=== PATIENT | male | born 1995 | race Caucasian/White ===

== ENCOUNTER 2017-04-19 13:13 | Emergency (ER) | payer OTHER ==
[~2017-04-19] VITALS: Ht 180.3 cm; Wt 142.9 kg
[2017-04-19 13:17] VITALS: Ht 180.3 cm; Wt 142.9 kg
[2017-04-19] MEDS ORDERED: LORAZEPAM 1 MG TAB PO STA (13:31)
--- NOTE | 2017-04-19 13:53 | DIAGNOSTIC IMAGING REPORT ---
CHEST ONE VIEW PORTABLE CLINICAL HISTORY: chest pain dyspnea COMPARISON STUDY: No previous studies for comparison. FINDINGS: The bones soft tissues and hemidiaphragms are normal. The cardiomediastinal silhouette is normal. The lungs are clear. The pulmonary vasculature is normal. IMPRESSION: Negative chest. The above report was generated using voice recognition software. It may contain grammatical, syntax or spelling errors. Electronically signed by: Fer Barron M.D. 04/19/2017 1:51 PM Dictated Date/Time: 04/19/2017 1:51 PM
[2017-04-19 14:02] LABS: BASO % 0.2 %; BASO ABS # 0.02 K/uL (0-0.2); EOS % 1.5 %; EOS ABS # 0.13 K/uL (0-0.5); HEMATOCRIT 45.7 % (42-52); HEMOGLOBIN 16.1 g/dL (14.0-18.0); IG# 0.02 K/uL (0.00-0.02); LYMPH % 30.9 %; MEAN CELL VOLUME 86.2 fL (80-100); MEAN CORPUSCULAR HEMOGLOBIN 30.4 pg (25-34); MEAN CORPUSCULAR HGB CONC 35.2 g/dl (32-36); MEAN PLATELET VOLUME 11.2 fL (7.4-10.4); MONO % 6.3 %; MONO ABS # 0.53 K/uL (0.11-0.59); NEUT % 60.9 %; NEUT ABS # 5.12 K/uL (1.4-6.5); PLATELET COUNT 274 K/uL (130-400); RED CELL DISTRIBUTION WIDTH CV 12.5 % (11.5-14.5); RED CELL DISTRIBUTION WIDTH SD 39.5 fL (36.4-46.3); WHITE BLOOD COUNT 8.42 K/uL (4.8-10.8)
[2017-04-19 14:16] LABS: ALBUMIN 4.3 gm/dl (3.4-5.0); ALT/SGPT 29 U/L (12-78); AST/SGOT 13 U/L (15-37); BLOOD UREA NITROGEN 11 mg/dl (7-18); CALCIUM 9.1 mg/dl (8.5-10.1); CARBON DIOXIDE 26 mmol/L (21-32); GLUCOSE 135 mg/dl (70-99); POTASSIUM 3.2 mmol/L (3.5-5.1); SODIUM 138 mmol/L (136-145)
[2017-04-19 14:27] LABS: ALKALINE PHOSPHATASE 64 U/L (45-117); TOTAL PROTEIN 7.7 gm/dl (6.4-8.2)
[2017-04-19] MEDS ORDERED: LISD1CAP3 PO (14:49)
--- NOTE | 2017-04-19 14:56 | EMERGENCY ROOM VISIT NOTE ---
History First contact with patient: 13:22 Chief Complaint: CHEST PAIN Stated Complaint: CHEST PAIN Nursing Triage Summary: Chest pain for about an hour. Thought it was an anxiety attack at the beginning but then it kept getting worse and worse. History of Present Illness The patient is a 21 year old male who presents to the Emergency Room with complaints of chest pain which began approximately one hour ago. The patient reports that his chest feels tight and he is having a difficult time taking a deep breath. He reports an associated left arm pain. The patient feels this may be secondary to an anxiety attack. He rates his discomfort a 6/10. He reports he has had these symptoms frequently in the past, but has not been evaluated for them before. He does admit to increased stress and anxiety over the past several months. He saw his primary care provider for this and they prescribed him a Vyvanse. He states that he take this as needed for anxiety. He took a dose this morning and states it has not helped. He reports he has had a mild cough recently, but denies any other illness. He denies fevers/ chills. He denies cardiac history. He does not smoke. Review of Systems A complete 10 point review of systems was reviewed with the patient with pertinent positives and negatives as per history of present illness. All else were negative. Past Medical/Surgical History No significant PMHx Family History No family hx of CAD, HTN, or DM Social History Smoking Status: Never Smoker Alcohol Use: occasionally Marital Status: in relationship Housing Status: lives with significant other Occupation Status: employed Current/Historical Medications Scheduled Lisdexamfetamine Dimesylate (Vyvanse), 10 MG PO DAILY Physical Exam Vital Signs Date Time Temp Pulse Resp B/P (MAP) Pulse Ox O2 Delivery O2 Flow Rate FiO2 04/19/17 15:01 36.9 96 20 154/83 98 Room Air 04/19/17 14:21 100 Room Air 04/19/17 13:38 108 04/19/17 13:17 90 20 181/90 99 Physical Exam VITALS: Vitals are noted on the nurse's note and reviewed by myself. Vital signs stable. GENERAL: This is a 21-year-old male, in no acute distress, nondiaphoretic, well- developed well-nourished. HEENT: Normocephalic. PERRLA. EOMI. Nares patent. Mucous membranes moist. Neck is supple without nuchal rigidity. HEART: Regular rate and rhythm without murmurs gallops or rubs. LUNGS: Clear to auscultation bilaterally without wheezes, rales or rhonchi. NEURO: Patient was alert and oriented to person place and time. Medical Decision & Procedures ER Provider Diagnostic Interpretation: CHEST ONE VIEW PORTABLE CLINICAL HISTORY: chest pain dyspnea COMPARISON STUDY: No previous studies for comparison. FINDINGS: The bones soft tissues and hemidiaphragms are normal. The cardiomediastinal silhouette is normal. The lungs are clear. The pulmonary vasculature is normal. IMPRESSION: Negative chest. Laboratory Results 04/19/17 13:40 Red Blood Count 5.30, Mean Corpuscular Volume 86.2, Mean Corpuscular Hemoglobin 30.4, Mean Corpuscular Hemoglobin Concent 35.2, Mean Platelet Volume 11.2, Neutrophils (%) (Auto) 60.9, Lymphocytes (%) (Auto) 30.9, Monocytes (%) (Auto) 6.3, Eosinophils (%) (Auto) 1.5, Basophils (%) (Auto) 0.2, Neutrophils # (Auto) 5.12, Lymphocytes # (Auto) 2.60, Monocytes # (Auto) 0.53, Eosinophils # (Auto) 0.13, Basophils # (Auto) 0.02 04/19/17 13:40 Test 04/19/17 13:40 White Blood Count 8.42 K/uL (4.8-10.8) Red Blood Count 5.30 M/uL (4.7-6.1) Hemoglobin 16.1 g/dL (14.0-18.0) Hematocrit 45.7 % (42-52) Mean Corpuscular Volume 86.2 fL (80-100) Mean Corpuscular Hemoglobin 30.4 pg (25-34) Mean Corpuscular Hemoglobin Concent 35.2 g/dl (32-36) Platelet Count 274 K/uL (130-400) Mean Platelet Volume 11.2 fL (7.4-10.4) Neutrophils (%) (Auto) 60.9 % Lymphocytes (%) (Auto) 30.9 % Monocytes (%) (Auto) 6.3 % Eosinophils (%) (Auto) 1.5 % Basophils (%) (Auto) 0.2 % Neutrophils # (Auto) 5.12 K/uL (1.4-6.5) Lymphocytes # (Auto) 2.60 K/uL (1.2-3.4) Monocytes # (Auto) 0.53 K/uL (0.11-0.59) Eosinophils # (Auto) 0.13 K/uL (0-0.5) Basophils # (Auto) 0.02 K/uL (0-0.2) RDW Standard Deviation 39.5 fL (36.4-46.3) RDW Coefficient of Variation 12.5 % (11.5-14.5) Immature Granulocyte % (Auto) 0.2 % Immature Granulocyte # (Auto) 0.02 K/uL (0.00-0.02) Anion Gap 7.0 mmol/L (3-11) Est Creatinine Clear Calc Drug Dose 139.7 ml/min Estimated GFR () 98.9 Estimated GFR (Non- 85.3 BUN/Creatinine Ratio 8.9 (10-20) Calcium Level 9.1 mg/dl (8.5-10.1) Total Bilirubin 0.7 mg/dl (0.2-1) Aspartate Amino Transf (AST/SGOT) 13 U/L (15-37) Alanine Aminotransferase (ALT/SGPT) 29 U/L (12-78) Alkaline Phosphatase 64 U/L (45-117) Troponin I < 0.015 ng/ml (0-0.045) Total Protein 7.7 gm/dl (6.4-8.2) Albumin 4.3 gm/dl (3.4-5.0) Globulin 3.4 gm/dl (2.5-4.0) Albumin/Globulin Ratio 1.3 (0.9-2) Thyroid Stimulating Hormone (TSH) 1.180 uIu/ml (0.300-4.500) ECG Rate (beats per minute): 85 Rhythm: normal sinus Findings: no acute ischemic change, no ectopy Comparison ECG Date: no prior available Medical Decision Differential diagnosis includes acute coronary syndrome, pulmonary embolism, pneumothorax, pericarditis, myocarditis, endocarditis, anxiety, musculoskeletal pain, GERD, costochondritis, pneumonia, among others. The patient is a 21-year-old male who presents today complaining of chest pain. Labs revealed no leukocytosis, anemia or concerning electrolyte abnormalities. Troponin is not elevated. Patient is in a euthyroid state. EKG shows a normal sinus rhythm. Chest x-ray is unremarkable. The patient admits to feeling very anxious and believes the symptoms are due to an anxiety attack. He has been prescribed Vyvanse for anxiety denies any history of ADHD. I am not sure if this is beneficial to the patient, and may actually be worsening his symptoms as this is a stimulant. He was advised to follow-up with his PCP regarding this. He was offered Ativan for symptomatic relief but declined. The patient's case was reviewed with Dr. Pantoja, ED attending physician, who agreed with my assessment and treatment plan. Based on the patient's presentation and work up, I feel the patient is stable for outpatient treatment. The patient was educated to return to the emergency department for any worsening of their current condition or new/concerning symptoms. He will follow up with his PCP. Medication Reconcilliation Current Medication List: was personally reviewed by me Blood Pressure Screening Patient's blood pressure: Normal blood pressure Impression Primary Impression: Chest discomfort Departure Information Dispostion Home / Self-Care Condition GOOD Referrals No Doctor, Assigned (PCP) Patient Instructions My [facility] Additional Instructions You have been treated in the Emergency Department for your Non-Cardiac Chest Pain. Laboratory results and Imaging Studies have ruled out any cardiac or pulmonary cause of your chest pain. For pain control, you can use the following ginr-ieb-ltevzfu medicines (if >12 yo): - Regular strength (325mg/tab) Tylenol (acetaminophen) 2 tabs every 4-6 hours as needed. Do not exceed 12 tablets in a 24 hour period. Avoid taking more than 4 grams (4000 mg) of Tylenol per day. This includes any other sources of acetaminophen you may take on a regular basis. - Regular strength (200 mg/tab) Advil (ibuprofen) 1-2 tabs every 4-6 hours as needed. Do not exceed a dose of 3200 mg per day. You should schedule a follow-up appointment with your Primary Care Provider in 2 -3 days for further evaluation from today's Emergency Department visit. Return to the Emergency Department if your current symptoms worsen despite treatment course outlined above, or if you develop any of the following symptoms : worsening chest pain, associated jaw/arm pain, nausea, dizziness, shortness of breath, bloody cough, or fainting.
[2017-04-19 15:01] VITALS: BP 154/83; PULSE 96; TEMP 36.9; O2SAT 98
== END 2017-04-19 15:09 | disposition home or self-care (01) ==
LOC: C.EDB 13:16 → C.EDA 15:09
DX: R07.89 Other chest pain (principal)